=== PATIENT | female | born 1955 | race Caucasian/White ===

== ENCOUNTER → 2016-09-29 | Outpatient (CLI) | payer MEDICARE | LOC: HEART 5 07:12 | DX: R07.9 Chest pain, unspecified (principal); R06.02 Shortness of breath | CPT/HCPCS: 78452; A9502; J2785 ==

== ENCOUNTER → 2020-07-02 | Outpatient (CLI) | payer MEDICARE ==
[~2020-07-02] MED LIST: CLEOCIN HCL300 MG PO
== END ==
LOC: EXRD 15:08
DX: N93.9 Abnormal uterine and vaginal bleeding, unspecified (principal); R10.9 Unspecified abdominal pain; N28.1 Cyst of kidney, acquired
CPT/HCPCS: 76775

== ENCOUNTER → 2020-12-30 | Outpatient (CLI) | payer MEDICARE ==
[2020-12-30 12:08] LABS: HEMOGLOBIN 14.4 gm/dl (12.3-15.3); RED BLOOD COUNT 4.52 M/UL (4.00-5.10); WHITE BLOOD COUNT 9.8 K/UL (4.5-11.0)
[2020-12-30 14:59] LABS: BUN/CREATININE RATIO 15 (0-10)
== END ==
LOC: LAB 09:36
PROVIDERS: Nurse Practitioner
DX: Z00.01 Encounter for general adult medical examination with abnormal findings (principal); R53.83 Other fatigue; I10 Essential (primary) hypertension; E78.5 Hyperlipidemia, unspecified; R73.09 Other abnormal glucose; E55.9 Vitamin D deficiency, unspecified; M79.10 Myalgia, unspecified site; Z79.01 Long term (current) use of anticoagulants; Z79.899 Other long term (current) drug therapy
CPT/HCPCS: 36415; 80053; 80061; 82607; 82746; 83036; 83735; 84443; 85025

== ENCOUNTER → 2021-03-10 | Outpatient (CLI) | payer MEDICARE | LOC: EXRD 15:11 | DX: M79.661 Pain in right lower leg (principal); M79.662 Pain in left lower leg | CPT/HCPCS: 93925 ==

== ENCOUNTER → 2021-06-01 | Outpatient (CLI) | payer MEDICARE | LOC: CT 09:07 | DX: R93.89 Abnormal findings on diagnostic imaging of other specified body structures (principal); I70.212 Atherosclerosis of native arteries of extremities with intermittent claudication, left leg | CPT/HCPCS: 36415; 75635; 82565; 84520; Q9967 ==

== ENCOUNTER 2021-06-29 11:45 | Inpatient (IN) | payer MEDICARE ==
[~2021-06-29] VITALS: Ht 149.9 cm; Wt 65.8 kg
[2021-06-29 12:38] LABS: HEMOGLOBIN 14.1 gm/dl (12.3-15.3); RED BLOOD COUNT 4.5 M/UL (4.00-5.10); WHITE BLOOD COUNT 9.1 K/UL (4.5-11.0)
[2021-06-29 13:15] LABS: BUN/CREATININE RATIO 25 (0-10)
[2021-06-29] MEDS ORDERED: CILOSTAZOL100 MG PO (14:35)
[2021-06-29] MEDS ORDERED: HYDROCHLOROTHIA25 MG PO (14:36)
[2021-06-29] MEDS ORDERED: SERTRALINE HCL50 MG PO (14:36)
[2021-06-29] MEDS ORDERED: ULTRAM50 MG PO (14:36)
[2021-06-29] MEDS ORDERED: VITAMIN D31250 MCG PO (14:37)
[2021-06-29] MEDS ORDERED: LISINOPRIL20 MG PO (14:37)
[2021-06-29] MEDS ORDERED: TIZANIDINE HCL4 MG PO (14:38)
[2021-06-29] MEDS ORDERED: CALCIUM ACETAT667 M2 PO (14:38)
[2021-06-30 02:47] LABS: HEMOGLOBIN 12.4 gm/dl (12.3-15.3); WHITE BLOOD COUNT 8.6 K/UL (4.5-11.0)
[2021-06-30 02:50] LABS: RED BLOOD COUNT 3.99 M/UL (4.00-5.10)
[2021-06-30 03:15] LABS: BUN/CREATININE RATIO 34 (0-10)
[2021-07-01 03:34] LABS: HEMOGLOBIN 11.6 gm/dl (12.3-15.3); RED BLOOD COUNT 3.77 M/UL (4.00-5.10)
[2021-07-01 03:35] LABS: WHITE BLOOD COUNT 11.2 K/UL (4.5-11.0)
[2021-07-01 03:43] LABS: BUN/CREATININE RATIO 26 (0-10)
--- NOTE | 2021-07-01 12:48 | NUR ---
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 ALERT AND ORIENTED. TRB BANDS INTACT TO LEFT AND RIGHT RADIAL. NO BLEEDING NOTED. BP 84/48 ON LLL. REPEAT BP 77/35. NOTIFIED AND ORDER RECEIVED FOR 250CC NS BOLUS. BOLUS STARTED AT 1240. CURRENT BP 88/56. BP IMPROVING. PATIENT REMAINS ALERT AND ORIENTED. NO BLEEDING NOTED.
[2021-07-01] MEDS ORDERED: ISOSORBIDE MONO30 MG PO (16:16)
== END 2021-07-01 17:30 | disposition home or self-care (01) | DRG 287 ==
LOC: ER1 11:45 → CDU 14:08 → 3 EAST 19:30 → MED SURG 4 06-30 17:27
PROVIDERS: Nurse Practitioner; Physician Assistant; Physician Assistant Medical; ADMIT Internal Medicine
PROC: 4A023N7 Measurement of Cardiac Sampling and Pressure, Left Heart, Percutaneous Approach (ICD-10-PCS; principal; 2021-07-01)
PROC: B2111ZZ Fluoroscopy of Multiple Coronary Arteries using Low Osmolar Contrast (ICD-10-PCS; 2021-07-01)
DX: R07.89 Other chest pain (principal); I10 Essential (primary) hypertension; Z20.822 Contact with and (suspected) exposure to COVID-19; I73.9 Peripheral vascular disease, unspecified; G89.29 Other chronic pain; F41.9 Anxiety disorder, unspecified; G43.909 Migraine, unspecified, not intractable, without status migrainosus; I16.0 Hypertensive urgency; I08.1 Rheumatic disorders of both mitral and tricuspid valves; Z90.710 Acquired absence of both cervix and uterus; E78.5 Hyperlipidemia, unspecified; Z88.6 Allergy status to analgesic agent; Z88.2 Allergy status to sulfonamides; Z82.3 Family history of stroke; Z82.49 Family history of ischemic heart disease and other diseases of the circulatory system; Z83.79 Family history of other diseases of the digestive system
CPT/HCPCS: ECHO; 36415; 71045; 78452; 80048; 82550; 82553; 83735; 83874; 83880; 84484; 85025; 85027; 93005; 93017; 93306; 96374; 96376; 99152; 99153; 99285; A9502; C1769; C1887; C1894; G0378; J1644; J2250; J2405; J2785; J3010; J7040; Q9967; U0002